=== PATIENT | female | born 1935 | race Caucasian/White ===

== ENCOUNTER 2022-07-16 19:24 | Emergency (ER) | payer OTHER ==
[2022-07-16 20:36] VITALS: RESP 14; BMI 21.7
[2022-07-16 22:45] VITALS: BP 145/70; PULSE 63; TEMP 98.3
== END 2022-07-17 01:56 | disposition home or self-care (01) ==
LOC: JER 19:24
DX: F03.90 Unspecified dementia, unspecified severity, without behavioral disturbance, psychotic disturbance, mood disturbance, and anxiety (principal); W01.0XXA Fall on same level from slipping, tripping and stumbling without subsequent striking against object, initial encounter
CPT/HCPCS: 70450-TC; 72125-TC; 99284-25